=== PATIENT | female | born 1945 | race Caucasian/White ===

== ENCOUNTER 2024-12-18 14:44 | Emergency (ER) | payer OTHER ==
[~2024-12-18 14:44] MED LIST: Iopamidol 370 76% 100 ML VIAL ONE
[2024-12-18] MEDS ORDERED: Acetaminophen 500 MG TAB ONE (15:51)
[2024-12-18] MEDS ORDERED: Sodium Chloride 0.9% 500 ML ONE (15:51)
[2024-12-18] MEDS ORDERED: Ketorolac Tromethamine 30 MG (1 mL) VIAL ONE (15:51)
[2024-12-18 15:58] LABS: #Basophils 0.1 thou/uL (0.0-0.2); #Eosinophils 0.4 thou/uL (0.0-0.7); #Lymphocytes 1.4 thou/uL (1.20-3.40); #Monocytes 0.6 thou/uL (0.11-0.59); #Neutrophils 2.8 thou/uL (1.40-6.50); %Basophils 2.1 % (0.0-1.0); %Eosinophils 7.5 % (0.0-10.0); %Lymphocytes 26.5 % (21.0-51.0); %Monocytes 10.3 % (0.0-10.0); %Neutrophils 53.5 % (42.0-75.0); Hematocrit 37.9 % (36.0-47.0); Hemoglobin 12.2 g/dL (12.0-16.0); Mean Corpuscular HGB CONC 32.2 g/dL (32.0-36.0); Mean Corpuscular Hemoglobin 30.6 pg (27.0-31.0); Mean Corpuscular Volume 95.3 fl (78.0-98.0); Mean Platelet Volume 6.7 fL (7.4-10.4); Platelet Count 289 10x3/uL (130-400); Red Blood Cell (RBC) Count 3.98 mill/uL (4.20-5.40); White Blood Cell (WBC) Count 5.3 10x3/uL (4.8-10.8)
[2024-12-18 16:14] LABS: ALT (SGPT) 18 U/L (Less than 34); AST (SGOT) 52 U/L (11-34); Albumin 3.2 g/dL (3.1-4.5); Alkaline Phosphatase 115 U/L (40-110); Anion Gap 13 mmol/L (10-20); BUN (Urea Nitrogen) 18 mg/dL (9.8-20.1); Bilirubin, Total 0.6 mg/dL (0.3-1.2); Calc. Creatinine Clearance 0 mL/min (70-130); Calcium 10.1 mg/dL (7.8-10.44); Carbon Dioxide 25 mmol/L (23-31); Chloride 106 mmol/L (98-107); Estimated GFR 56; Globulin 4.3 g/dL (2.4-3.5); Glucose 103 mg/dL (83-110); Lipase 73 U/L (8-78); Potassium 4.5 mmol/L (3.5-5.1); Protein, Total 7.5 g/dL (5.8-8.1); Sodium 139 mmol/L (136-145)
[2024-12-18 16:50] LABS: Bilirubin Negative (Negative); Blood, Urine Negative (Negative); Clarity Clear (Clear); Glucose, Urine (Dipstick) Negative (Negative); Ketone, Urine Negative (Negative); Leukocyte Trace (Negative); Nitrite Negative (Negative); Protein, Urine (Dipstick) Negative (Neg-Trace); Urobilinogen 0.2 mg/dL (Less than 2)
[2024-12-18 16:58] LABS: Bacteria/HPF Rare-Few HPF (None Seen); CAUTI Indications for Culture Dysuria,urgency,freq; RBC/HPF 0-3 HPF (0-3); Renal Epithelial 0-3 HPF (None Seen); Squamous Epithelial 0-3 HPF (0-3); Transitional Epithelial 0-3 HPF (None Seen); Urine Culture Reflex No No; WBC/HPF 0-3 HPF (0-3)
[2024-12-18] MEDS ORDERED: Polyethylene Glycol 3350 17 GM Packet ONE (18:18)
== END 2024-12-18 19:30 | disposition home or self-care (01) ==
LOC: NAV ERS 14:44
DX: S32.592A Other specified fracture of left pubis, initial encounter for closed fracture (principal); S32.119A Unspecified Zone I fracture of sacrum, initial encounter for closed fracture; K59.00 Constipation, unspecified; E11.9 Type 2 diabetes mellitus without complications; Z79.4 Long term (current) use of insulin; X58.XXXA Exposure to other specified factors, initial encounter
CPT/HCPCS: 74177; 80053; 81001; 83690; 85025; 96361; 96374; J1885; J7030; Q9967